=== PATIENT | female | born 1990 | race Hispanic/Latino ===

== ENCOUNTER → 2018-07-03 | Outpatient (CLI) | payer MEDICAID ==
[~2018-07-03] MED LIST: IOHEXOL 350 MG/ML 100ML INFUS..BTL IV ONE
== END | disposition home or self-care (01) ==
LOC: RAH 09:36
PROVIDERS: ATTEND Physical Medicine & Rehabilitation
DX: N30.90 Cystitis, unspecified without hematuria (principal); Z98.890 Other specified postprocedural states
CPT/HCPCS: 74178; Q9967

== ENCOUNTER → 2019-12-17 | Outpatient (CLI) | payer MEDICAID ==
[~2019-12-17] MED LIST changes: +GADODIAMIDE 10 MMOL/20 ML VIAL IV ONE; -IOHEXOL 350 MG/ML 100ML INFUS..BTL IV ONE
== END | disposition home or self-care (01) ==
LOC: RAH 13:26
PROVIDERS: ATTEND Physical Medicine & Rehabilitation
DX: K59.00 Constipation, unspecified (principal); R10.2 Pelvic and perineal pain
CPT/HCPCS: 72197; A9579

== ENCOUNTER → 2021-04-21 | Outpatient (CLI) | payer MEDICAID ==
[2021-04-21 11:33] LABS: BASOPHILS % (AUTO) 0.9 % (0.0-5.0); EOSINOPHILS % (AUTO) 0.6 % (0.0-8.0); HEMATOCRIT 38.5 % (36-48); LYMPHOCYTES % (AUTO) 30.7 % (21.0-51.0); MEAN CORPUSCULAR HEMOGLOBIN 26.6 pg (27.0-33.0); MEAN CORPUSCULAR HGB CONC 32.7 g/dL (32.0-36.0); MEAN CORPUSCULAR VOLUME 81.4 fL (79-99); MONOCYTES % (AUTO) 7.2 % (3.0-13.0); NEUTROPHILS % (AUTO) 60.4 % (40.0-77.0); PLATELET COUNT (AUTO) 246 K/uL (130-400); RED BLOOD CELL COUNT(AUTO) 4.73 MIL/uL (4.00-5.50); WHITE BLOOD COUNT (AUTO) 5.3 K/uL (4.8-10.8)
[2021-04-21 11:59] LABS: BILIRUBIN,TOTAL 0.6 mg/dL (0.2-1.0); CREATININE 0.4 mg/dL (0.5-1.5); POTASSIUM 3.9 mmol/L (3.5-5.1); THYROID STIMULATING HORMONE 1.02 uIU/mL (0.36-3.74); TOTAL PROTEIN, SERUM 7.6 g/dL (6.0-8.3)
== END | disposition home or self-care (01) ==
LOC: RAH 10:06
PROVIDERS: ATTEND Internal Medicine Gastroenterology
DX: K31.84 Gastroparesis (principal); K59.04 Chronic idiopathic constipation; M41.86 Other forms of scoliosis, lumbar region; Q65.89 Other specified congenital deformities of hip; R11.0 Nausea; Z98.890 Other specified postprocedural states
CPT/HCPCS: 36415; 74021; 80053; 82150; 82533; 83690; 84443; 85025

== ENCOUNTER → 2021-11-01 | Outpatient (CLI) | payer MEDICAID | END | disposition home or self-care (01) | LOC: RAH 07:41 | PROVIDERS: ATTEND Internal Medicine Gastroenterology | DX: R68.81 Early satiety (principal); R11.0 Nausea; R63.1 Polydipsia | CPT/HCPCS: 78264; A9541 ==

== ENCOUNTER → 2022-02-23 | Outpatient (CLI) | payer MEDICAID | END | disposition home or self-care (01) | LOC: RAH 10:30 | PROVIDERS: ATTEND Internal Medicine Gastroenterology | DX: R63.4 Abnormal weight loss (principal); Z90.49 Acquired absence of other specified parts of digestive tract | CPT/HCPCS: 71046; 76700 ==

== ENCOUNTER → 2022-08-18 | Outpatient (CLI) | payer MEDICAID ==
[2022-08-18 12:52] LABS: BASOPHILS % (AUTO) 0.7 % (0.0-5.0); EOSINOPHILS % (AUTO) 0.7 % (0.0-8.0); HEMATOCRIT 39.9 % (36-48); LYMPHOCYTES % (AUTO) 41.3 % (21.0-51.0); MEAN CORPUSCULAR HEMOGLOBIN 29.2 pg (27.0-33.0); MEAN CORPUSCULAR HGB CONC 33.3 g/dL (32.0-36.0); MEAN CORPUSCULAR VOLUME 87.5 fL (79-99); MONOCYTES % (AUTO) 7.4 % (3.0-13.0); NEUTROPHILS % (AUTO) 49.7 % (40.0-77.0); PLATELET COUNT (AUTO) 233 K/uL (130-400); RED BLOOD CELL COUNT(AUTO) 4.56 MIL/uL (4.00-5.50); WHITE BLOOD COUNT (AUTO) 4.5 K/uL (4.8-10.8)
[2022-08-18 13:02] LABS: AMPHET/METH SCREEN,URINE NEGATIVE (NEGATIVE); BARBITURATE SCREEN, URINE NEGATIVE (NEGATIVE); BENZODIAZEPINES SCREEN,URINE NEGATIVE (NEGATIVE); CANNABINOID SCREEN,URINE NEGATIVE (NEGATIVE); COCAINE SCREEN,URINE NEGATIVE (NEGATIVE); OPIATE SCREEN,URINE NEGATIVE (NEGATIVE); PHENCYCLIDINE SCREEN,URINE NEGATIVE (NEGATIVE)
[2022-08-18 13:31] LABS: ALANINE AMINOTRANSFERASE 21 U/L (12-78); ALBUMIN 4.3 g/dL (3.5-5.0); ASPARTATE AMINOTRANSFERASE 22 U/L (10-37); CARBON DIOXIDE 29 mmol/L (21-32); CHLORIDE 105 mmol/L (101-111); CHOLESTEROL 180 mg/dL (<200); CREATININE 0.3 mg/dL (0.5-1.5); GLOMERULAR FILTR. RATE CALC 145 mL/min (>90); GLUCOSE,RANDOM 90 mg/dL (70-105); HDL CHOLESTEROL 64 mg/dL (35-85); LDL DIRECT 105 mg/dL (0-99); SODIUM SERUM 141 mmol/L (136-145); THYROID STIMULATING HORMONE 0.64 uIU/mL (0.36-3.74); TOTAL PROTEIN, SERUM 7.5 g/dL (6.0-8.3); TRIGLYCERIDES 56 mg/dL (30-200); UREA NITROGEN, BLOOD 12 mg/dL (7-18)
== END | disposition home or self-care (01) ==
LOC: LAB 12:03
PROVIDERS: ATTEND Psychiatry & Neurology Psychiatry
DX: Z79.899 Other long term (current) drug therapy (principal)
CPT/HCPCS: 93005; 80061; 84443; 80053; 80305; 85025; 82306; 82607; 82746; 36415; A4335

== ENCOUNTER 2022-11-10 23:46 | Emergency (ER) | payer MEDICAID ==
[~2022-11-10] VITALS: Ht 142.2 cm; Wt 32.2 kg
[2022-11-11 01:00] LABS: BASOPHILS # (AUTO) 0.04 K/uL (0.00-0.20); BASOPHILS % (AUTO) 0.7 % (0.0-5.0); EOSINOPHILS # (AUTO) 0.05 K/uL (0.00-0.70); EOSINOPHILS % (AUTO) 0.9 % (0.0-8.0); HEMATOCRIT 35.7 % (36-48); IMMATURE GRANULOCYTE ABSOLUTE 0.01 K/uL (0-1); LYMPHOCYTES # (AUTO) 2.5 K/uL (1.0-4.8); LYMPHOCYTES % (AUTO) 43.5 % (21.0-51.0); MEAN CORPUSCULAR HEMOGLOBIN 28.9 pg (27.0-33.0); MEAN CORPUSCULAR HGB CONC 33.1 g/dL (32.0-36.0); MEAN CORPUSCULAR VOLUME 87.5 fL (79-99); MONOCYTES # (AUTO) 0.4 K/uL (0.1-1.0); MONOCYTES % (AUTO) 7.4 % (3.0-13.0); NEUTROPHILS # (AUTO) 2.8 K/uL (1.8-7.7); NEUTROPHILS % (AUTO) 47.3 % (40.0-77.0); PLATELET COUNT (AUTO) 240 K/uL (130-400); RED BLOOD CELL COUNT(AUTO) 4.08 MIL/uL (4.00-5.50); RED CELL DISTRIBUTION WIDTH 13.2 % (11.0-15.5); WHITE BLOOD COUNT (AUTO) 5.8 K/uL (4.8-10.8)
[2022-11-11 01:09] LABS: CREATININE 0.3 mg/dL (0.5-1.5); POTASSIUM 3.7 mmol/L (3.5-5.1)
[2022-11-11 01:13] LABS: ALBUMIN 3.7 g/dL (3.5-5.0); BILIRUBIN,TOTAL 0.2 mg/dL (0.2-1.0); TOTAL PROTEIN, SERUM 6.8 g/dL (6.0-8.3)
[2022-11-11 01:16] LABS: ADD UA MICROSCOPIC NO; APPEARANCE,URINE CLEAR (CLEAR); BILIRUBIN,URINE NEGATIVE (NEGATIVE); COLOR,URINE LIGHT-YELLOW (YELLOW); GLUCOSE, URINE (UA) NEGATIVE (NEGATIVE); KETONES,URINE NEGATIVE (NEGATIVE); LEUKOCYTE ESTERASE ,URINE NEGATIVE Leu/uL (NEGATIVE); NITRATE,URINE NEGATIVE (NEGATIVE); OCCULT BLOOD,URINE NEGATIVE (NEGATIVE); PH,URINE 5.5 (5.0-8.0); PROTEIN,URINE NEGATIVE (NEGATIVE); UROBILINOGEN,URINE 0.2 mg/dL (0.2-1.0)
[2022-11-11] MEDS ORDERED: ONDANSETRON 4MG INJ IVP ONE (01:30)
[2022-11-11] MEDS ORDERED: MORPHINE 2 MG SYG IVP ONE (01:30)
[2022-11-11] MEDS ORDERED: IOHEXOL-350 75 ML VIAL IV ONE (01:49)
[2022-11-11] MEDS ORDERED: DOCU-116 PO (06:22)
[2022-11-11 06:27] VITALS: BP 116/63; PULSE 73; RESP 18; O2SAT 96
== END 2022-11-11 06:59 | disposition home or self-care (01) ==
LOC: EDH 23:46
DX: K59.00 Constipation, unspecified (principal); R10.31 Right lower quadrant pain; F41.9 Anxiety disorder, unspecified; F31.9 Bipolar disorder, unspecified; K31.84 Gastroparesis; Z90.49 Acquired absence of other specified parts of digestive tract
CPT/HCPCS: 99285; 80053; 83690; 85025; 81003; 81025; 36415; 74177; 96374; 96375; J2270; J2405; Q9967

== ENCOUNTER → 2023-01-19 | Outpatient (CLI) | payer MEDICAID ==
[~2023-01-19] MED LIST changes: +DOCU-116 PO; -GADODIAMIDE 10 MMOL/20 ML VIAL IV ONE
== END | disposition home or self-care (01) ==
LOC: LAB 12:13
PROVIDERS: ATTEND Psychiatry & Neurology Psychiatry
DX: Z79.899 Other long term (current) drug therapy (principal)
CPT/HCPCS: 93005

== ENCOUNTER → 2023-10-26 | Outpatient (CLI) | payer OTHER | END | disposition home or self-care (01) | LOC: RAH 07:59 | PROVIDERS: ATTEND Internal Medicine Cardiovascular Disease | DX: Z13.6 Encounter for screening for cardiovascular disorders (principal) | CPT/HCPCS: 75571 ==

== ENCOUNTER 2024-03-07 01:55 | Emergency (ER) | payer MEDICAID, OTHER ==
[~2024-03-07] VITALS: Ht 142.2 cm; Wt 42.2 kg
[2024-03-07 01:57] VITALS: TEMP 97
[2024-03-07] MEDS: BACLOFEN 10 MG TABLET PO SCH (03:08)
--- NOTE | 2024-03-07 03:28 | ERN ---
ED Note History of Present Illness Stated Complaint: C/O SPASMS TO BODY ONSET TONIGHT Chief Complaint: Muscle Spasm Time Seen by MD: 02:01 Allergies: Coded Allergies: No Known Drug Allergies (Unverified Allergy, Unknown, 11/11/22) Home Meds Active Scripts Docusate Sodium (Colace) 100 Mg Capsule, 100 MG PO BID PRN for constipation, #60 CAP Prov:CUONGNORMANRALPH MD 11/11/22 Past Medical History Dictation 33-year-old female with past medical history of cerebral palsy and gastroparesis presents with concerns for muscle spasms after her baclofen drip ran out. Patient has been having agitation and irritation since the trip stopped. Patient denies fevers nausea, vomiting diaphoresis, syncope, presyncope, productive cough Past Medical History: Seizure, Other Additional Past Medical Hx: HX OF CEREBRAL PALSY, SCOLIOSIS, EPILEPSY, GASTROPARESIS Surgical History: Other Surgical History Other: BACLOFEN PUMP Family History: Negative Social History: Lives with family LMP: Feb 12, 2024 Review of System Dictation See HPI Initial Vital Sign VS Vital Signs Date Time Temp Pulse Resp B/P (MAP) Pulse Ox O2 Delivery O2 Flow Rate FiO2 03/07/24 01:57 97.0 75 20 119/83 97 Room Air 03/07/24 02:33 0 21 Physical Exam Dictation Chronically ill-appearing, acutely weak appearing, agitated, uncomfortable, neurological baseline, abdomen soft, nontender, non peritoneal ED Course ED Course Orders Procedure Category Date Status Time Baclofen (Baclofen) PHA 03/07/24 In Process 03:00 Current Medications Medications (Trade) Dose Ordered Sig/Mt Route PRN Reason Start Time Stop Time Status Last Admin Dose Admin Baclofen (Baclofen) 50 mg ONCE PO 03/07/24 03:00 04/06/24 02:59 03/07/24 03:08 Vital Signs Date Time Temp Pulse Resp B/P (MAP) Pulse Ox O2 Delivery O2 Flow Rate FiO2 03/07/24 02:33 76 15 135/89 96 Room Air* 0 21 03/07/24 01:57 97.0 75 20 119/83 97 Room Air Medical Decision Making MDM Patient presents with agitation after running out of baclofen. Patient states she can not get another drip until tomorrow morning when she speaks with the primary care physician. We will prescribed baclofen here. Reassess Upon re-evaluation, patient resting more comfortably in room. Discussed ED workup with the patient patient's mother. At this time, patient patient's mother requesting discharge home. They will return to the emergency department immediately if they need more assistance. It will follow up with primary care physician 1st thing tomorrow morning. DX & DISP Disposition: Discharge Departure Impression: Primary Impression: Muscle spasm Condition: Stable Additional Instructions: Please follow up with primary care physician next available appointment. Please return to emergency department immediately if change your mind about further ev aluation and management Referrals: MARISEL MAHMOOD MD (PCP) Time of Disposition: 03:27 MARISEL LATIF DO Mar 07, 2024 03:28
[2024-03-07 03:33] VITALS: BP 135/90; PULSE 72; RESP 15; O2SAT 96
== END 2024-03-07 03:36 | disposition home or self-care (01) ==
LOC: EDH 01:55
DX: M62.838 Other muscle spasm (principal); Z79.899 Other long term (current) drug therapy; Z98.890 Other specified postprocedural states
CPT/HCPCS: 99284

== ENCOUNTER 2024-04-14 09:53 | Emergency (ER) | payer MEDICARE ==
[~2024-04-14] VITALS: Ht 142.2 cm; Wt 33.6 kg
[~2024-04-14 09:53] MED LIST changes: +BACLOFEN ITH; +CALCIUM VIT D3 PO; +CLEARLAX PO; -DOCU-116 PO; +DOMPERIDONE PO; +LAMO100T16 PO; +LAMO25TA9 PO; +MELA10CA2 PO; +METR45GE10 TP; +MONT-39 PO; +OMEP20CA12 PO; +PRUC2TAB PO; +VIT E PO; +ZOFRAN PO
[2024-04-14 10:28] LABS: BASOPHILS # (AUTO) 0.04 K/uL (0.00-0.20); BASOPHILS % (AUTO) 0.6 % (0.0-5.0); EOSINOPHILS # (AUTO) 0.14 K/uL (0.00-0.70); EOSINOPHILS % (AUTO) 2.1 % (0.0-8.0); HEMATOCRIT 34.2 % (36-48); IMMATURE GRANULOCYTE ABSOLUTE 0.02 K/uL (0-1); LYMPHOCYTES # (AUTO) 1.6 K/uL (1.0-4.8); LYMPHOCYTES % (AUTO) 23.7 % (21.0-51.0); MEAN CORPUSCULAR HGB CONC 31.6 g/dL (32.0-36.0); MEAN CORPUSCULAR VOLUME 85.5 fL (79-99); MONOCYTES # (AUTO) 0.4 K/uL (0.1-1.0); MONOCYTES % (AUTO) 5.9 % (3.0-13.0); NEUTROPHILS # (AUTO) 4.4 K/uL (1.8-7.7); NEUTROPHILS % (AUTO) 67.4 % (40.0-77.0); PLATELET COUNT (AUTO) 317 K/uL (130-400); RED CELL DISTRIBUTION WIDTH 14.7 % (11.0-15.5); WHITE BLOOD COUNT (AUTO) 6.6 K/uL (4.8-10.8)
[2024-04-14 10:47] LABS: CREATININE 0.3 mg/dL (0.5-1.0); POTASSIUM 3.6 mmol/L (3.5-5.1)
[2024-04-14 10:52] LABS: ALBUMIN 3.7 g/dL (3.5-5.0); BILIRUBIN,TOTAL 0.4 mg/dL (0.2-1.0); TOTAL PROTEIN, SERUM 7.5 g/dL (6.0-8.3)
[2024-04-14 12:18] LABS: ADD UA MICROSCOPIC YES; APPEARANCE,URINE CLEAR (CLEAR); BILIRUBIN,URINE NEGATIVE (NEGATIVE); COLOR,URINE LIGHT-YELLOW (YELLOW); GLUCOSE, URINE (UA) NEGATIVE (NEGATIVE); KETONES,URINE 150 mg/dL (NEGATIVE); LEUKOCYTE ESTERASE ,URINE NEGATIVE Leu/uL (NEGATIVE); NITRATE,URINE NEGATIVE (NEGATIVE); OCCULT BLOOD,URINE NEGATIVE (NEGATIVE); PH,URINE 5.5 (5.0-8.0); PROTEIN,URINE 30 mg/dL (NEGATIVE); UROBILINOGEN,URINE 0.2 mg/dL (0.2-1.0)
[2024-04-14 12:20] LABS: MUCUS,URINE RARE LPF (None Seen); RBC,URINE 0-1 /HPF (0-1); SQUAMOUS EPITHELIAL CELL,UR FEW /HPF (0-2); WBC,URINE 0-1 /HPF (0-1)
--- NOTE | 2024-04-14 12:50 | ERN ---
General Chief Complaint: Dehydration Stated Complaint: DEHYDRATION Time Seen by MD: 09:58 Source: patient History of Present Illness Initial Comments Pt is a 33-year-old female with a history of cerebral palsy coming in to be evaluated for dehydration. Per mother patient was had ongoing nauseousness and vomiting for two years. Was diagnosed with a extreme gastroparesis had a procedure performed but mother symptoms continue. Mother states that she was informed by surgeon to follow up in ER for IV hydration. Allergies: Coded Allergies: No Known Drug Allergies (Unverified Allergy, Unknown, 11/11/22) Home Meds Reported Medications Metronidazole (Metronidazole) 0.75 % Gel..gram., 1 APPL TP AD PRN for RASH for 30 Days, #45 GM 0 Refills 03/18/24 [Baclofen] No Conflict Check, ITH DAILY 03/18/24 [Domperidone] No Conflict Check, 10 MG PO TID 03/18/24 [Zofran] No Conflict Check, 8 MG PO HS 03/18/24 Melatonin (Melatonin) 10 Mg Capsule, 1 CAP PO HS for sleep for 30 Days, #30 CAP 0 Refills 03/18/24 Lamotrigine (Lamotrigine) 25 Mg Tablet, 1 TAB PO HS for 30 Days, #30 TAB 0 Refills 03/18/24 Montelukast Sodium (Montelukast Sodium) 10 Mg Tablet, 10 MG PO HS, TAB 03/18/24 Lamotrigine (Lamotrigine) 100 Mg Tablet, 1 TAB PO BID for 30 Days, #60 TAB 0 Refills 03/18/24 [Clearlax] No Conflict Check, 0.5 CAP PO AM 03/18/24 Omeprazole (Omeprazole) 20 Mg Capsule.dr, 1 CAP PO DAILY for 30 Days, #30 CAP 0 Refills 03/18/24 Prucalopride Succinate (Motegrity) 2 Mg Tablet, 2 MG PO AM, TAB 03/18/24 [Vit E] No Conflict Check, 1 TAB PO AM 03/18/24 [Calcium Vit D3] No Conflict Check, 1 TAB PO AM 03/18/24 Past Medical History Past Medical History: Seizure, Other Medical History Other: HX OF CEREBRAL PALSY, SCOLIOSIS, EPILEPSY, GASTROPARESIS Past Surgical History: Other Surgical History Other: BACLOFEN PUMP Family History Family History: Negative Social History Social History: Lives with family ROS Dictation CONSTITUTIONAL: No chills, no fever, no weakness, no diaphoresis, no malaise. HEAD/FACE: No signs of trauma. EENT: No eye pain, no blurred vision, no tearing, no double vision, no ear pain, no ear discharge, no nose pain, no nasal congestion, no throat pain, no throat swelling, no mouth pain. RESPIRATORY: No cough, no orthopnea, no SOB, no stridor, no wheezing. CARDIOVASCULAR: No chest pain, no edema, no palpitations, no syncope. GASTROINTESTINAL/ABDOMINAL: No abdominal pain, no constipation, no diarrhea, nausea, vomiting. GENITOURINARY: No abnormal discharge, no dysuria, no frequent urination, no hematuria. No complaints of pain in the genitals. MUSCULOSKELETAL: No back pain, no gout, no joint pain, no joint swelling, no muscle pain, no muscle stiffness, no neck pain. INTEGUMENTARY: No change in color, no change in hair/nails, no dryness, no lesion, no lumps, no rash. NEUROLOGICAL/PSYCH: No anxiety, not depressed, no emotional problem, no headache, no numbness, no pre-existing deficit, no history of seizures, no tremors, no weakness. HEMATOLOGIC/LYMPHATIC: Not anemic, no history of blood clots, no apparent bleeding, no bruising, glands not swollen. All Systems Negative, Except as Noted. Physical Exam Physical Exam Dictation VITAL SIGNS: Reviewed. GENERAL APPEARANCE: Alert, oriented x3, no acute distress, obese. HEAD AND FACE: Non-traumatic. EYES: PERRL, pink conjunctivas, eyelid no trauma, anterior chamber clear. EARS: Pinnas intact and no signs of trauma or erythema. Ear canals clear and no discharge. TMs no erythema. NOSE: No discharge, no bleeding. OROPHARYNX: Mouth normal, teeth no caries, tongue pink. Pharynx clear, no erythema. Tonsils no exudates, no abscesses noted. Mucous membrane moist. NECK: Supple, non-tender, no thyromegaly, no masses, no JVD, no bruits. BREAST: Deferred. CHEST: No tenderness, no crepitus, no paradoxical movement, no retractions. LUNGS: Clear, well-ventilated, symmetric, no rales, no wheezing, no rhonchi, no stridor, good breath sounds bilaterally. HEART: Regular rate, regular rhythm, no murmur, no gallops. VASCULAR: No peripheral edema. ABDOMEN: Soft, positive bowel sounds, nondistended, no guarding, nontender, no rebound, no masses no hepatomegaly, no splenomegaly, no Huang's sign, no hernias. RECTAL: Deferred. GENITAL: Deferred. NEUROLOGICAL: Normal speech, gross motor function intact, gross sensory fun ction intact. MUSCULOSKELETAL: Neck nontender, full range of motion, back nontender, full range of motion. EXTREMITIES: Nontender, full range of motion. SKIN: Color pink, dry, no turgor, no rash, no lacerations, no abrasions, no contusions. LYMPHATICS: Deferred. Results Laboratory and Microbiology Lab and Micro Result Laboratory Tests Test 04/14/24 10:23 04/14/24 12:08 White Blood Count 6.6 K/uL (4.8-10.8) Red Blood Count 4.00 MIL/uL (4.00-5.50) Hemoglobin 10.8 g/dL (12.0-16.0) L Hematocrit 34.2 % (36-48) L Mean Corpuscular Volume 85.5 fL (79-99) Mean Corpuscular Hemoglobin 27.0 pg (27.0-33.0) Mean Corpuscular Hemoglobin Concent 31.6 g/dL (32.0-36.0) L Red Cell Distribution Width 14.7 % (11.0-15.5) Platelet Count 317 K/uL (130-400) Mean Platelet Volume 9.7 fL (7.5-10.5) Immature Granulocyte % (Auto) 0.3 % (0-1) Neutrophils (%) (Auto) 67.4 % (40.0-77.0) Lymphocytes (%) (Auto) 23.7 % (21.0-51.0) Monocytes (%) (Auto) 5.9 % (3.0-13.0) Eosinophils (%) (Auto) 2.1 % (0.0-8.0) Basophils (%) (Auto) 0.6 % (0.0-5.0) Neutrophils # (Auto) 4.4 K/uL (1.8-7.7) Lymphocytes # (Auto) 1.6 K/uL (1.0-4.8) Monocytes # (Auto) 0.4 K/uL (0.1-1.0) Eosinophils # (Auto) 0.14 K/uL (0.00-0.70) Basophils # (Auto) 0.04 K/uL (0.00-0.20) Absolute Immature Granulocyte (auto 0.02 K/uL (0-1) Nucleated Red Blood Cells 0.0 % (0.0-0.19) Sodium Level 136 mmol/L (136-145) Potassium Level 3.6 mmol/L (3.5-5.1) Chloride Level 101 mmol/L (101-111) Carbon Dioxide Level 22 mmol/L (21-32) Blood Urea Nitrogen 3 mg/dL (7-18) L Creatinine 0.3 mg/dL (0.5-1.0) L Glomerular Filtration Rate Calc 144 mL/min (>90) Random Glucose 66 mg/dL (70-105) L Total Calcium 8.6 mg/dL (8.5-10.1) Total Bilirubin 0.4 mg/dL (0.2-1.0) Aspartate Amino Transf (AST/SGOT) 17 U/L (10-37) Alanine Aminotransferase (ALT/SGPT) 15 U/L (12-78) Alkaline Phosphatase 57 U/L (50-136) Total Creatine Kinase 33 U/L (21-232) Total Protein 7.5 g/dL (6.0-8.3) Albumin 3.7 g/dL (3.5-5.0) Lipase 23 U/L (16-77) Urine Color LIGHT-YELLOW (YELLOW) Urine Appearance CLEAR (CLEAR) Urine pH 5.5 (5.0-8.0) Urine Specific Bryson 1.025 (1.001-1.031) Urine Protein 30 mg/dL (NEGATIVE) H Urine Glucose (UA) NEGATIVE mg/dL (NEGATIVE) Urine Ketones 150 mg/dL (NEGATIVE) H Urine Occult Blood NEGATIVE (NEGATIVE) Urine Nitrate NEGATIVE (NEGATIVE) Urine Bilirubin NEGATIVE mg/dL (NEGATIVE) Urine Urobilinogen 0.2 mg/dL (0.2-1.0) Urine Leukocyte Esterase NEGATIVE Talha/uL Urine RBC 0-1 /HPF (0-1) Urine WBC 0-1 /HPF (0-1) Urine Squamous Epithelial Cells FEW /HPF (0-2) Urine Bacteria None /HPF (None Seen) Labs Reviewed?: Yes MDM MDM: Differential diagnosis: Dehydration, history of gastroparesis, gastritis Patient is a 34-year-old female coming in to be evaluated for gastritis and dehydration. Per family member and patient she was got an extensive history of gastroparesis has had multiple surgeries but she waxes and wanes between symptoms. Per mother patient has not been hydrating herself or healing well. Patient was just seen by her PCP and surgeon. Surgeon advised her to follow up with the ER to get IV fluids. Patient was hydrated with IV fluids given proton pump inhibitors and some glucose patient has remained asymptomatic. Per mother she states he does not want he me imaging studies performed as this has been ongoing for two years. Patient will be discharged in stable condition. ED Course Orders Procedure Category Date Status Time Cbc With Differential LAB 04/14/24 Complete 10:08 Comprehensive LAB 04/14/24 Complete Metabolic Panel 10:08 Urinalysis Profile LAB 04/14/24 Complete 10:08 Creatine Kinase, Total LAB 04/14/24 Complete 10:08 Lipase LAB 04/14/24 Complete 10:08 0.9% Nacl 500ml PHA 04/14/24 Complete Iv.Soln (Ns 500ml 12:30 Pantoprazole 40mg Inj PHA 04/14/24 Transmitted (Protonix 40mg Inj 12:30 Dextrose 50%-Water PHA 04/14/24 Complete (D50w) 12:30 Current Medications Medications (Trade) Dose Ordered Sig/Mt Route PRN Reason Start Time Stop Time Status Last Admin Dose Admin Dextrose (D50w) 25 ml ONCE ONCE IV 04/14/24 12:30 04/14/24 12:32 DC Pantoprazole Sodium (PROTonix 40MG INJ) 40 mg ONCE ONCE IVP 04/14/24 12:30 04/14/24 12:32 DC Sodium Chloride 500 ml @ 0 mls/hr ONCE ONCE IV 04/14/24 12:30 04/14/24 12:32 DC Vital Signs Date Time Temp Pulse Resp B/P (MAP) Pulse Ox O2 Delivery O2 Flow Rate FiO2 04/14/24 09:55 97.5 75 16 109/70 97 Room Air* 0 21 04/14/24 09:55 97.5 75 16 109/70 98 Room Air 0 DX & DISP Disposition: Discharge Departure Impression: Primary Impression: Constipation Additional Impressions: Dehydration, Chronic gastritis Condition: Stable Additional Instructions: FOLLOW-UP WITH PRIMARY CARE PROVIDER IN 1 TO 2 DAYS. TAKE MEDICATIONS DIRECTED HERE IN THE EMERGENCY ROOM. OKAY TO CONTINUE HOME MEDICATIONS UNLESS OTHERWISE DISCUSSED DURING YOUR VISIT IN THE EMERGENCY ROOM TODAY. RETURN TO YOUR NEAREST EMERGENCY ROOM IF SYMPTOMS WORSEN OR IF THERE IS NO IMPROVEMENT. CALL 911 IF YOU NEED IMMEDIATE ASSISTANCE. TAKE TYLENOL [id number] NEEDED AND IF NO CONTRAINDICATIONS ARE PRESENT. INCREASE ORAL HYDRATION. A WOUND CULTURE OR URINE CULTURE WAS ORDERED HERE IN THE EMERGENCY ROOM DEPARTMENT PLEASE FOLLOW-UP WITH PRIMARY CARE PROVIDER AND ADVISE THEM TO GET REPEAT PORTS FROM OUR FACILITY. IF YOU HAD ANY RAMON WRAP/SPLINTS THAT WERE APPLIED HERE, PLEASE DO NOT REMOVE THEM UNTIL YOU SEE YOUR PRIMARY CARE OR SPECIALTY. Referrals: Referrals: MARISEL MAHMOOD MD (PCP) Time of Disposition: 14:07 CITLALY DIEHL MD Apr 14, 2024 12:50
--- NOTE | 2024-04-14 13:53 | NUR ---
9632 SPOKE TO ZAK FISHING TOOL SUPERVISOR FROM [facility] REGARDING SITUATION WITH AGUSTIN FRIEND AT BEDSIDE, EXPLANED SITUATION WHAT WAS SAID AT BEDSIDE REGARDING PEG FEEDNG FORM, VERBAL STATEMENTS AGUSTIN MADE. I INFORMED HIM ORIGINAL DOCUMENT WAS GIVEN BACK TO AGUSTIN FRIEND IN HAND AND AGUSTIN VERBALIZED AGREED SHE HAS ORIGINGAL DOCUMENT IN HER FOLDER. ZAK STATED HE WILL TALK TO AGUSTIN.
[2024-04-14] MEDS: PANTOPrazole 40 MG/VIAL IVP ONE (14:04)
[2024-04-14] MEDS: 0.9% NACL 500ML IV.SOLN 500 ML IV ONE (14:06)
[2024-04-14] MEDS: DEXTROSE 50%-WATER 50 ML DISP.SYRIN IV ONE (14:06)
[2024-04-14 14:08] VITALS: BP 114/61; PULSE 75; RESP 16; TEMP 98; O2SAT 99
--- NOTE | 2024-04-14 14:44 | NUR ---
PT AAOX3 STABLE NO DISTRESS VITALS WNL NO C/O PAIN, IV REMOVED CATHETER INTACT, PT AND MOTHER GIVEN INSTRUCTIONS FOR HOME, NO NEW MEDICATIONS AT THIS TIME PT WILL SEE HER PCP THIS WEEK. INSTRUCTIONS GIVEN ON DIET FOR HOME. MOTHER PLACED PT ON TO HER WHEELCHAIR, PT AND MOM DRIVEN HOME BY FATHER.
== END 2024-04-14 14:47 | disposition home or self-care (01) ==
LOC: EDH 09:53
DX: K59.00 Constipation, unspecified (principal); E86.0 Dehydration; K29.50 Unspecified chronic gastritis without bleeding; K31.84 Gastroparesis; Z79.899 Other long term (current) drug therapy
CPT/HCPCS: 99284; 96374; 82550; 80053; 83690; 85025; 81001; 36415; J7040; J7070; J2470; 99283

== ENCOUNTER → 2024-10-08 | Outpatient (CLI) | payer MEDICARE, MEDICAID ==
[~2024-10-08] MED LIST changes: +LAMO-23 PO; -LAMO25TA9 PO; +MELA10CA11 PO; -MELA10CA2 PO
--- NOTE | 2024-10-08 14:30 | HMCIMG ---
EXAM: CT Lumbar Spine Without Intravenous Contrast CLINICAL HISTORY: 34-year-old female with presence of other specified devices. TECHNIQUE: Axial computed tomography images of the lumbar spine without intravenous contrast. Sagittal and coronal reformations performed. Dose reduction technique was used including one or more of the following: automated exposure control, adjustment of mA and kV according to patient size, and/or iterative reconstruction. CONTRAST: None. COMPARISON: None provided. FINDINGS: BONES: Extensive fixation hardware throughout the lumbar spine. Fixation hardware in the iliac wings and sacrum seen. Diffuse osteopenia seen. No acute compression deformity. DISCS / DEGENERATIVE CHANGES: Moderate scoliosis convexity to the left. SOFT TISSUES: No prevertebral soft tissue swelling. Large amount of stool incidentally noted in the colon. IMPRESSION: 1. No acute lumbar spine fracture or dislocation. 2. Extensive fixation of hardware throughout the lumbar spine, iliac wings, and sacrum. 3. Moderate scoliosis convexity to the left. 4. Diffuse osteopenia. 5. Large amount of stool incidentally noted in the colon. /[place]
== END | disposition home or self-care (01) ==
LOC: RAH 12:51
PROVIDERS: ATTEND Neurological Surgery
DX: M41.86 Other forms of scoliosis, lumbar region (principal); M85.88 Other specified disorders of bone density and structure, other site; G83.89 Other specified paralytic syndromes; Z97.8 Presence of other specified devices
CPT/HCPCS: 72131